=== PATIENT | female | born 1990 | race Caucasian/White ===

== ENCOUNTER 2019-07-04 22:44 | Inpatient (IN) ==
--- NOTE | 2019-07-04 22:24 | OB/GYN History & Physical ---
Date of Encounter: 07/04/19 Time of Encounter: 22:21 Assessment and Plan (1) 39 weeks gestation of Current visit: Yes Status: Acute History of Present Illness Chief complaint: labor HPI: Ms. Ahn is a 29 year old female presents to labor and delivery with spontaneous rupture membranes and in labor at 39 weeks and 3 days. On presentation she is 5-6 cm under percent effaced -1 station. She is doing well. This patient has not had care since approximately 26 weeks and 5 days. Patient states that she has been out of town. She has no drug allergies. She is currently on vitamins and Pepcid. She has no chronic medical conditions. Surgical history is significant for laparoscopy. Socially she denies illicit drug use. She does drink occasionally. She does smoke half a pack a day. Obstetric history significant for 2 term vaginal deliveries, K. Family history significant for hypertension, heart disease, diabetes and mental illness. Patient has uncle with trisomy 13. Past Med Surg Social Fam HX - Past Medical History Medical history: no medical history Psychiatric history: no psych history - Social History Smoking Status: Current every day smoker Smokeless Tobacco Status: No Alcohol use: none Drug use: none Obstetrical History - Pregnancies : 3 Para: 2 Term: 2 Livin Medications and Allergies Vit/FA 1 each PO DAILY #60 tablet 10/21/16 [Rx] Allergy/AdvReac Type Severity Reaction Status Date / Time diphenhydramine Allergy Hives Verified 06/28/15 17:40 [From Benadryl] Review of System OB All systems PM: reviewed and no additional remarkable complaints except as stated Exam - Constitutional Constitutional: well developed, well nourished, no acute distress, average body habitus - HEENT HEENT: EOMI, PERRL, Normocephaly - Neck Neck exam: full ROM - Lungs Respiratory exam: CTAB - Cardiovascular Cardiovascular exam: RRR - Abdomen Abdomen: Present: bowel sounds normal, gravid, non tender - Extremities Extremities exam: full ROM - Vagina Vagina: Present: normal moisture - Cervix Dilation: 6 Effacement: 100 Station: -1 - Uterus Uterus exam: Present: normal size Results All other labs normal.
[2019-07-04 22:36] LABS: Basophils # 0.1 K/mcL (0.0-0.2); Basophils % 0.3 %; Eosinophils # 0.2 K/mcL (0.0-0.6); Eosinophils % 0.8 %; Hematocrit 43.8 % (35.3-44.9); Hemoglobin 14.6 g/dL (11.5-15.4); Immature Granulocytes % 0.9 % (0-4); Lymphocytes # 3.5 K/mcL (0.6-4.6); Lymphocytes % 18.3 %; Mean Corpuscular HGB Conc 33.3 g/dL (31.6-35.5); Mean Corpuscular Volume 98.9 fL (83.0-100.0); Mean Platelet Volume 13.2 fL (9.4-12.4); Monocytes # 1.1 K/mcL (0.0-1.3); Monocytes % 5.7 %; Platelet Count 243 K/mcL (140-400); Red Blood Count 4.43 M/mcL (3.82-4.97)
[~2019-07-04 22:44] MED LIST: *HR* Nalbuphine 10 MG/ML AMPUL IVP PRN; Famotidine 20 MG/2 ML VIAL IVP PRN; Metoclopramide 10 MG/2 ML VIAL IVP PRN; Naloxone 0.4 MG/ML INJ IVP PRN; Oxytocin 20 units/ LR 1000 mL 20 UNIT/1,000 ML BAG IVC ONE; Ringers Solution, Lactated 1,000 ML ONE
[2019-07-04 22:45] LABS: Amphetamine Screen,Urine Negative ng/mL (Cutoff=1000); Barbiturate Screen,Urine Negative ng/mL (Cutoff=200); Benzodiazepines Screen,Urine Negative ng/mL (Cutoff=200); Cannabinoid Screen,Urine Negative ng/mL (Cutoff = 50); Cocaine Screen,Urine Negative ng/mL (Cutoff= 300); Opiate Screen,Urine Negative ng/mL (Cutoff=300); Phencyclidine Screen,Urine Negative ng/mL (Cutoff=25)
[2019-07-04] MEDS ORDERED: Lidocaine -MPF 1% 2 ML VIAL ONE (23:20)
[2019-07-04 23:25] LABS: Rubella IgG Antibody POSITIVE (POSITIVE); Varicella Zoster IgG Antibody Positive
--- NOTE | 2019-07-04 23:33 | OB/GYN Procedure Note ---
Delivery - Delivery Date: 07/04/19 Provider: Srinivasan Marroquin Intrapartum events: none Delivery induction: none Delivery monitor: external FHT, external uterine Anesthesia: none Quantitated Blood Loss: 100 - Infant (s) Infant A Delivery Date: 07/04/19 Infant Delivery Time: 23:15 Presentation: vertex Position: OA Route of delivery: Gender: Male Viability: Viable at 1 minute: 8 at 5 mins: 9 Shoulder Dystocia: not encountered Specimens collected: cord blood Placenta: spontaneous Cord: 3 umbilical vessels - Repair Episiotomy: none Laceration Description: Perineal - 1st Degree - Complications Delivery complications: none Delivery comments: This patient progressed rapidly to complete and pushing. There was spontaneous vaginal delivery of male infant over an intact perineum. 's head was on the perineum with 1 push. The rest the was then delivered with 1 push. Infant cried medially upon delivery. The course cut to cut after 1 minute. was in past nurse in attendance. Was then placed on mother's chest skin to skin. Cord blood was obtained. The placenta was then delivered spontaneously intact. There were no cervical, vaginal, periurethral lacerations noted. There was a first-degree perineal laceration repaired with 3 Vicryl suture in usual fashion. Patient delivered a male infant weight is pending his mother skin the skin Apgars are 8 at 1 minute and 9 at 5 minutes, estimated blood loss 100 mL - Disposition Mom disposition: stable in LDR [place] disposition: stable in LDR
[2019-07-04] MEDS ORDERED: Oxytocin 20 units/ LR 1000 mL 20 UNIT/1,000 ML BAG IVC SCH (23:40)
[2019-07-04] MEDS ORDERED: Measles/Mumps/Rubella Vacc 0.5 ML VIAL SQ PRN (23:40)
[2019-07-04] MEDS: Ibuprofen 600 MG TABLET PO PRN (23:55)
[2019-07-05 01:48] LABS: HIV-1&2 Antibody & p24 Ag Nonreactive (Nonreactive)
[2019-07-05] MEDS: Acetaminophen 325 MG TABLET PO PRN ×2 (03:20→21:09)
[2019-07-05 07:25] LABS: Basophils # 0.1 K/mcL (0.0-0.2); Basophils % 0.3 %; Eosinophils # 0.1 K/mcL (0.0-0.6); Eosinophils % 0.5 %; Immature Granulocytes % 0.9 % (0-4); Lymphocytes # 2.7 K/mcL (0.6-4.6); Lymphocytes % 14.3 %; Mean Corpuscular Hemoglobin 32.2 pg (28.0-33.3); Mean Corpuscular Volume 97.6 fL (83.0-100.0); Mean Platelet Volume 13.3 fL (9.4-12.4); Monocytes # 1.4 K/mcL (0.0-1.3); Monocytes % 7.4 %; Neutrophils # 14.5 K/mcL (1.6-8.9); Platelet Count 199 K/mcL (140-400); Red Blood Count 3.38 M/mcL (3.82-4.97); Red Cell Distribution Width 13.8 % (11.5-14.5); Segmented Neutrophils % 76.6 %
[2019-07-05 07:26] LABS: Hemoglobin 10.9 g/dL (11.5-15.4)
[2019-07-05] MEDS: Prenatal Vit/FA 1 EACH TABLET PO SCH (08:53)
[2019-07-05] MEDS: Ibuprofen 600 MG TABLET PO PRN ×2 (08:53→21:09)
[2019-07-05] MEDS ORDERED: Benzocaine/Menthol 56 GM AEROSOL SPRAY TP PRN (09:06)
--- NOTE | 2019-07-05 09:08 | OB/GYN Progress Note ---
Date of Encounter: 07/05/19 Time of Encounter: 09:06 - Assessment and Plan (1) Vaginal delivery Current Visit: Yes Status: Acute Continue routine care discharge home today follow up with Dr. Howard in 4-6 weeks. Subjective - Subjective Principal diagnosis: day 1 vaginal delivery Interval history: Patient doing well day 1. Patient is bottle feeding male infant. Patient reports bleeding is moderate. She reports mild cramps and just had motrin for relief. Patient reports: appetite normal, voiding normally, pain well controlled, ambulating normally : doing well, bottle feeding Objective - Latest Vital Signs Latest vital signs: Vital Signs Temp Pulse Resp BP Pulse Ox 07/05/19 07:45 98.2 F 62 18 121/73 96 07/05/19 04:25 98.9 F 90 16 113/70 96 07/05/19 03:10 97.3 F L 72 15 128/82 97 07/05/19 02:10 98.0 F 70 16 133/86 97 Intake and Output 07/04/19 07/05/19 07/05/19 23:59 07:59 15:59 Intake Total 600 / 600 Output Total 850 / 850 Balance -250 / -250 Intake: Oral 600 / 600 Output: Urine 850 / 850 Other: Stool Characteristics Normal for Patient Weight 56.9 kg Patient Weight 07/05/19 23:59 Weight 56.9 kg - Exam Lungs: bilateral: normal Extremities: Present: normal Abdomen: Present: normal appearance, soft, gravid Uterus: Present: normal, firm Uterus Position: At Umbilicus, Midline - Labs Labs: Laboratory Results - last 24 hr 07/04/19 07/04/19 07/04/19 22:20 22:20 22:20 WBC RBC Hgb Hct MCV MCH MCHC RDW Plt Count MPV Immature Gran % Seg Neutrophils % Lymphocytes % Monocytes % Eosinophils % Basophils % Neutrophils # Lymphocytes # Monocytes # Eosinophils # Basophils # Urine Opiates Screen Negative Ur Buprenorphine Scrn Negative Ur Barbiturates Screen Negative Ur Phencyclidine Scrn Negative Ur Amphetamines Screen Negative U Benzodiazepines Scrn Negative Urine Cocaine Screen Negative U Marijuana (THC) Screen Negative Ur Drug Screen Interp See Below T.pallidum Ab Interpret Negative Hep Bs Antigen HIV Ag/Ab Combo Qual Nonreactive Rubella IgG Antibody POSITIVE VZV IgG Antibody Positive Blood Type O POSITIVE 07/04/19 07/04/19 07/05/19 22:20 22:20 06:40 WBC 19.0 H 19.0 H RBC 4.43 3.38 L Hgb 14.6 10.9 L D Hct 43.8 33.0 L MCV 98.9 97.6 MCH 33.0 32.2 MCHC 33.3 33.0 RDW 14.0 13.8 Plt Count 243 199 MPV 13.2 H 13.3 H Immature Gran % 0.9 0.9 Seg Neutrophils % 74.0 76.6 Lymphocytes % 18.3 14.3 Monocytes % 5.7 7.4 Eosinophils % 0.8 0.5 Basophils % 0.3 0.3 Neutrophils # 14.0 H 14.5 H Lymphocytes # 3.5 2.7 Monocytes # 1.1 1.4 H Eosinophils # 0.2 0.1 Basophils # 0.1 0.1 Urine Opiates Screen Ur Buprenorphine Scrn Ur Barbiturates Screen Ur Phencyclidine Scrn Ur Amphetamines Screen U Benzodiazepines Scrn Urine Cocaine Screen U Marijuana (THC) Screen Ur Drug Screen Interp T.pallidum Ab Interpret Hep Bs Antigen Nonreactive HIV Ag/Ab Combo Qual Rubella IgG Antibody VZV IgG Antibody Blood Type
[2019-07-06 08:06] VITALS: BP 118/61
[2019-07-06] MEDS: Prenatal Vit/FA 1 EACH TABLET PO SCH (08:21)
--- NOTE | 2019-07-06 08:21 | Discharge Summary ---
Date of Encounter: 07/06/19 Time of Encounter: 08:08 - Discharge Diagnosis (1) Vaginal delivery Priority: Primary Status: Acute Comments: S/P on 07/04/19 with 1st degree perineal laceration. Mom and baby doing well Meeting day two milestones Pain well controlled +BM this morning F/U with Dr Howard in 4-6 weeks. No vaginal intercourse, tampons, or douching for 6 weeks. Tylenol and Ibuprofen for pain control. (2) Tobacco use Priority: Secondary Status: Acute Comments: Inquired about patient's desire to quit smoking. She stated that she only smokes a few cigarettes a day, and is not interested in quitting at this time. Informed her that there are multiple options available and encouraged her to ask her PCP if she was curious about those options at a later time. (3) First degree perineal laceration during delivery Priority: Secondary Status: Acute Comments: Motrin, Dermoplast, ice packs as needed for discomfort. - Discharge Medications Prescriptions: New Docusate [Colace] 100 mg PO BID 10 Days #20 capsule Benzocaine/Menthol [place] [Dermoplast [place]] 1 appl TP QID PRN aerosol PRN Reason: See Comments Ferrous Sulfate 325 mg PO QDPC 90 Days #90 tablet Measles/Mumps/Rubella Vacc [MMR II Vaccine with Diluent] 0.5 ml SQ AD PRN vial PRN Reason: Rubella nonimmune Ibuprofen [Motrin] 600 mg PO Q6HR PRN 10 Days #40 tablet PRN Reason: Cramping Acetaminophen [Tylenol] 650 mg PO Q6HR PRN 28 Days #90 tablet PRN Reason: Mild Pain Continued Gabapentin [Neurontin] 1 tab PO BID Discontinued Vit/FA 1 each PO DAILY #60 tablet Home Medications: Gabapentin [Neurontin] 1 tab PO BID 07/04/19 [History] Acetaminophen [Tylenol] 650 mg PO Q6HR PRN 28 Days #90 tablet 07/06/19 [Rx] Benzocaine/Menthol [place] [Dermoplast [place]] 1 appl TP QID PRN aerosol 07/06/19 [Rx] Docusate [Colace] 100 mg PO BID 10 Days #20 capsule 07/06/19 [Rx] Ferrous Sulfate 325 mg PO QDPC 90 Days #90 tablet 07/06/19 [Rx] Ibuprofen [Motrin] 600 mg PO Q6HR PRN 10 Days #40 tablet 07/06/19 [Rx] Measles/Mumps/Rubella Vacc [MMR II Vaccine with Diluent] 0.5 ml SQ AD PRN vial 07/06/19 [Rx] Allergies/Adverse Reactions: Allergy/AdvReac Type Severity Reaction Status Date / Time diphenhydramine Allergy Hives Verified 07/04/19 22:28 [From Benadl] Data Procedures and tests throughout hospitalization: Laboratory Tests 07/04/19 07/04/19 07/04/19 22:20 22:20 22:20 WBC RBC Hgb Hct MCV MCH MCHC RDW Plt Count MPV Immature Gran % Seg Neutrophils % Lymphocytes % Monocytes % Eosinophils % Basophils % Neutrophils # Lymphocytes # Monocytes # Eosinophils # Basophils # Urine Opiates Screen Negative Ur Buprenorphine Scrn Negative Ur Barbiturates Screen Negative Ur Phencyclidine Scrn Negative Ur Amphetamines Screen Negative U Benzodiazepines Scrn Negative Urine Cocaine Screen Negative U Marijuana (THC) Screen Negative Ur Drug Screen Interp See Below T.pallidum Ab Interpret Negative Hep Bs Antigen HIV Ag/Ab Combo Qual Nonreactive Rubella IgG Antibody POSITIVE VZV IgG Antibody Positive Blood Type O POSITIVE 07/04/19 07/04/19 07/05/19 22:20 22:20 06:40 WBC 19.0 H 19.0 H RBC 4.43 3.38 L Hgb 14.6 10.9 L D Hct 43.8 33.0 L MCV 98.9 97.6 MCH 33.0 32.2 MCHC 33.3 33.0 RDW 14.0 13.8 Plt Count 243 199 MPV 13.2 H 13.3 H Immature Gran % 0.9 0.9 Seg Neutrophils % 74.0 76.6 Lymphocytes % 18.3 14.3 Monocytes % 5.7 7.4 Eosinophils % 0.8 0.5 Basophils % 0.3 0.3 Neutrophils # 14.0 H 14.5 H Lymphocytes # 3.5 2.7 Monocytes # 1.1 1.4 H Eosinophils # 0.2 0.1 Basophils # 0.1 0.1 Urine Opiates Screen Ur Buprenorphine Scrn Ur Barbiturates Screen Ur Phencyclidine Scrn Ur Amphetamines Screen U Benzodiazepines Scrn Urine Cocaine Screen U Marijuana (THC) Screen Ur Drug Screen Interp T.pallidum Ab Interpret Hep Bs Antigen Nonreactive HIV Ag/Ab Combo Qual Rubella IgG Antibody VZV IgG Antibody Blood Type Date of admission: 07/04/19 22:44 Consults: 07/04/19 23:40 Consult to Assistant Banquet Manager [CONS] Routine Comment: Vaginal delivery, consult needed Discharging clinician: Zita Davis Anticipated date of discharge: 07/06/19 - Patient Status Disposition: Home, Self-Care Condition: Good Functional capacity at discharge: independent ambulation Overall status at discharge: patient is progressing back to baseline - Discharge Instructions Follow Up With: Rashida Howard MD [Partnered Physician] - - Diet and Activity Activity: increase activity as tolerated Diet: advance to your usual diet Hospital Course Reason for admission: rupture of membranes Delivery: Episiotomy: none Laceration: 1st degree Other procedures: none complications: none Discharge diagnosis: IUP at term delivered baby: male Hospital course: - Delivery Date: 07/04/19 Provider: Srinivasan Marroquin Intrapartum events: none Delivery induction: none Delivery monitor: external FHT, external uterine Anesthesia: none Quantitated Blood Loss: 100 - (s) A Delivery Date: 07/04/19 Infant Delivery Time: 23:15 Presentation: vertex Position: OA Route of delivery: Gender: Male Viability: Viable at 1 minute: 8 at 5 mins: 9 Shoulder Dystocia: not encountered Specimens collected: cord blood Placenta: spontaneous Cord: 3 umbilical vessels - Repair Episiotomy: none Laceration Description: Perineal - 1st Degree - Complications Delivery complications: none Delivery comments: This patient progressed rapidly to complete and pushing. There was spontaneous vaginal delivery of male over an intact perineum. 's head was on the perineum with 1 push. The rest the was then delivered with 1 push. cried medially upon delivery. The course cut to cut after 1 minute. was in past nurse in attendance. Was then placed on mother's chest skin to skin. Cord blood was obtained. The placenta was then delivered spontaneously intact. There were no cervical, vaginal, periurethral lacerations noted. There was a first-degree perineal laceration repaired with 3 Vicryl suture in usual fashion. Patient delivered a male weight is pending his mother skin the skin Apgars are 8 at 1 minute and 9 at 5 minutes, estimated blood loss 100 mL Time spent discussing smoking cessation with patient: 3 to 10 minutes Time Attestation: Total time spent providing and/or coordinating discharge services: Time Spent: Less than 30 minutes Exam - Constitutional Vitals: Temp Pulse Resp BP Pulse Ox 98.2 F 70 16 118/61 100 07/06/19 08:05 07/06/19 08:05 07/06/19 08:05 07/06/19 08:05 07/06/19 08:05 General appearance IM: A&O X 3, no acute distress, answers questions appropriately - Respiratory Respiratory exam: Present: CTAB. Absent: accessory muscle use, rhonchi, stridor, wheezes - Cardiovascular Cardiovascular exam IM: Present: RRR, +S1, +S2. Absent: diastolic murmur, systolic murmur - GI/Abdominal GI/Abdominal exam IM: normal bowel sounds, soft - Uterine Tone: Firm Uterus Position: 3 Fingers Below Umbilicus, Midline - Extremities Exam Extremities exam IM: Present: full ROM, normal inspection. Absent: joint swelling - Neurological Exam Neurological exam: CN II-XII intact, oriented X3, no focal deficits
== END 2019-07-06 16:40 | disposition home or self-care (01) | DRG 560 ==
LOC: 1NENULAB → 1NENUOBS 07-05 02:08
PROVIDERS: ADMIT Obstetrics & Gynecology; ATTEND Obstetrics & Gynecology